=== PATIENT | male | born 1955 | race Caucasian/White ===

== ENCOUNTER 2023-01-09 12:16 | Outpatient (OUT) | payer MEDICARE, OTHER, SELFPAY ==
--- NOTE | 2023-01-09 13:11 | CA_ITS ---
[facility] Test Date: 2023-01-09 Pat Name: Cornelio Mendez Department: Room: - Gender: Male [employer]: : [id number] Requested By: KULDEEP Order Number: [id number] Reading MD: BENNY BARBER Interpretive Statements Monophasic doppler waveforms PVR waveforms with delayed upstroke, blunted amplitude and loss of dicrotic notch Right: - significant pressure gradient between the thigh and calf cuff - significant pressure gradient between the calf and DP cuff - abnormal STIVEN and TBI Left: - significant pressure gradient between the brachial and thigh cuff - significant pressure gradient between the DP and PT cuff - abnormal STIVEN and TBI Impression: - elevated indices (right thigh, left calf, left DP) consistent with calcified, noncompressible arterial howe, which may underestimate the degree of arterial disease present - significant right outflow (tibioperoneal) arterial disease with mild hemodynamic impairment of the right lower extremity at rest (right STIVEN 0.91) - significant left inflow (femoral artery or above) with moderate hemodynamic impairment of the left lower extremity at rest (left STIVEN 0.65) - suspect erroneous left calf and DP indices due to calcified, noncompressible arterial howe with left thigh and PT more accurately reflecting left lower extremity arterial status - clinical correlation advised Electronically Signed On 01-12-2023 20:41:42 EDT by BENNY BARBER
== END 2023-01-09 12:17 | disposition home or self-care (01) ==
LOC: CARD 12:19
PROVIDERS: PCP Family Medicine
DX: I70.203 Unspecified atherosclerosis of native arteries of extremities, bilateral legs (principal); R93.89 Abnormal findings on diagnostic imaging of other specified body structures
CPT/HCPCS: 93923